=== PATIENT | female | born 1990 | race Caucasian/White ===

== ENCOUNTER 2021-12-07 07:19 | Outpatient (CLI) | payer OTHER ==
[2021-12-07 12:26] LABS: BASOPHILS % (AUTO) 0.5 %; EOSINOPHILS # (AUTO) 0.1 10^3/uL (0.0-0.7); EOSINOPHILS % (AUTO) 1.2 %; HCT - HEMATOCRIT 38.9 % (37.0-47.0); HGB - HEMOGLOBIN 12.9 g/dL (12.0-16.0); LYMPHOCYTES # (AUTO) 2.2 10^3/uL (1.5-3.5); LYMPHOCYTES % (AUTO) 28.3 %; MEAN CORPUSCULAR HEMOGLOBIN 31.5 pg (27.0-31.0); MEAN CORPUSCULAR HGB CONC 33.2 g/dL (32.0-36.0); MEAN CORPUSCULAR VOLUME 95.1 fL (81.0-99.0); MEAN PLATELET VOLUME 10.8 fL (7.9-10.8); MONOCYTES # (AUTO) 0.6 10^3/uL (0.0-1.0); MONOCYTES % (AUTO) 8.1 %; NEUTROPHILS # (AUTO) 4.8 10^3/uL (1.5-6.6); NEUTROPHILS % (AUTO) 61.8 %; PLT - PLATELET COUNT 231 10^3/uL (130-450); RED BLOOD COUNT 4.09 10^6/uL (4.20-5.40); RED CELL DISTRIBUTION WIDTH 11.5 % (12.0-15.0); WHITE BLOOD COUNT 7.7 x10^3/uL (4.8-10.8)
[2021-12-07 12:54] LABS: ESTIMATED AVERAGE GLUCOSE 108 mg/dL (70-100); HEMOGLOBIN A1c% 5.4 % (4.27-6.07)
[2021-12-07 13:13] LABS: THYROID STIMULATING HORMONE 1.11 uIU/mL (0.34-5.60)
[2021-12-07 13:15] LABS: ALBUMIN 4.7 g/dL (3.2-5.5); ALBUMIN/GLOBULIN RATIO 1.8 (1.0-2.2); ALKALINE PHOSPHATASE 39 IU/L (42-121); ALT ALANINE AMINOTRANSFERASE 14 IU/L (10-60); AST ASPARTATE AMINOTRANSFERASE 20 IU/L (10-42); BILIRUBIN,TOTAL 0.8 mg/dL (0.2-1.0); BUN - BLOOD UREA NITROGEN 16 mg/dL (6-20); CALCIUM 9.4 mg/dL (8.5-10.3); CARBON DIOXIDE - CO2 26 mmol/L (21-32); CHLORIDE 104 mmol/L (101-111); CHOL/HDL RATIO 1.8 (<4.4); CHOLESTEROL 187 mg/dL; CREATININE 0.7 mg/dL (0.4-1.0); GFR - MDRD 98 (>89); GLUCOSE 105 mg/dL (70-100); HDL CHOLESTEROL 106 mg/dL; POTASSIUM 4.5 mmol/L (3.5-5.0); SODIUM 135 mmol/L (135-145); TOTAL PROTEIN 7.3 g/dL (6.7-8.2); TRIGLYCERIDES 27 mg/dL
== END 2021-12-07 07:20 | disposition home or self-care (01) ==
LOC: LAB.N 07:19
PROVIDERS: ATTEND Physician Assistant
DX: Z13.1 Encounter for screening for diabetes mellitus (principal); Z13.220 Encounter for screening for lipoid disorders; Z13.29 Encounter for screening for other suspected endocrine disorder; Z13.9 Encounter for screening, unspecified
CPT/HCPCS: 36415; 80053; 80061; 83036; 83721; 84443; 85025

== ENCOUNTER 2024-03-17 05:58 | Outpatient (CLI) | payer OTHER ==
[2024-03-17 06:51] LABS: THYROID STIMULATING HORMONE 0.96 uIU/mL (0.34-5.60)
[2024-03-17 06:57] LABS: PROLACTIN 11.33 ng/mL
[2024-03-19 12:08] LABS: ESTRADIOL 94.4 pg/mL (.)
[2024-03-19 21:11] LABS: FREE TESTOSTERONE(DIRECT) 2.4 pg/mL (0.0-4.2)
== END 2024-03-17 05:59 | disposition home or self-care (01) ==
LOC: LAB 05:58
PROVIDERS: ATTEND Nurse Practitioner
DX: Z31.69 Encounter for other general counseling and advice on procreation (principal)
CPT/HCPCS: 36415; 82166; 82670; 83001; 83002; 83498; 84146; 84270; 84402; 84403; 84443

== ENCOUNTER 2024-05-16 16:31 | Outpatient (CLI) | payer OTHER ==
--- NOTE | 2024-05-16 20:43 | Ultrasound Report ---
PROCEDURE: Pelvic Complete INDICATIONS: INFERTILITY INVESTIGATION AND TESTING TECHNIQUE: Real-time transabdominal scanning was performed of the pelvic organs, with image documentation. COMPARISON: None FINDINGS: Uterus: Uterus is anteverted and normal in size at 8.2 x 3.3 x 4.4 cm. The myometrium is heterogene ous. The endometrium measures 9.6 mm in combined thickness. No uterine fibroids. Ovaries: The right ovary measures 2.8 x 2.2 x 3.3 cm, with a calculated ovarian volume of 10.6 cc. The left ovary measures 3.2 x 1.7 x 3.2 cm, with a calculated ovarian volume of 8.8 cc. Left ovarian dominant follicle measuring 1.7 cm. The ovaries have a normal sonographic appearance. Less than 12 f ollicles can be seen in each ovary. No adnexal masses are seen. No cystic lesions measuring greater than 3 cm. Other: No free pelvic fluid. IMPRESSION: Normal appearance of the uterus and ovaries. Reviewed by: Pawel Balbuena MD on 05/16/2024 8:41 PM PDT Approved by: Pawel Balbuena MD on 05/16/2024 8:41 PM PDT Station ID: [id number]
== END 2024-05-16 16:32 | disposition home or self-care (01) ==
LOC: DI 16:31
PROVIDERS: ATTEND Nurse Practitioner
DX: Z31.41 Encounter for fertility testing (principal)